=== PATIENT | male | born 1950 | race Caucasian/White ===

== ENCOUNTER 2018-12-13 06:28 | Inpatient (IN) ==
[2018-12-13] MEDS ORDERED: ASPIRIN 325 MG TABLET PO STA (06:59)
[2018-12-13] MEDS ORDERED: NITROGLYCERIN SL 0.4 MG TABLET SL PRN (06:59)
[2018-12-13] MEDS ORDERED: ENOXAPARIN 100 MG/ML SYRINGE SUBCUT STA (06:59)
[2018-12-13] MEDS ORDERED: NITROGLYCERIN 2% OINT 1 INCH/GM PACK TOP STA (06:59)
[2018-12-13 07:22] LABS: INR 0.9; PT Patient Result 10.2 SECS (9.6-12.2)
[2018-12-13] MEDS ORDERED: MAGNESIUM SULF RIDER 2 GM in PREMIX 1 EACH IV PRN (08:11)
[2018-12-13] MEDS ORDERED: MAGNESIUM SULF RIDER 4 GM in PREMIX 1 EACH IV PRN (08:11)
[2018-12-13] MEDS ORDERED: ONDANSETRON 4 MG/2 ML VIAL IV PRN (08:11)
[2018-12-13] MEDS ORDERED: MORPHINE 4 MG/1 ML VIAL IV PRN (08:11)
[2018-12-13] MEDS ORDERED: POTASSIUM CHLORIDE 20 MEQ TABLET PO PRN (08:11)
[2018-12-13] MEDS ORDERED: ZALEPLON 5 MG CAPSULE PO PRN (08:11)
[2018-12-13] MEDS ORDERED: PNEUMOCOCCAL VACCINE (13 VALENT) 0.5 ML SYRINGE IM ONE (09:36)
[2018-12-13] MEDS: METOPROLOL TARTRATE 25 MG TABLET PO SCH ×2 (09:59→21:14)
[2018-12-13] MEDS: FUROSEMIDE 20 MG TABLET PO SCH (09:59)
[2018-12-13] MEDS: ISOSORBIDE MONONITRATE 60 MG TABLET PO SCH (09:59)
[2018-12-13] MEDS: CLOPIDOGREL 75 MG TABLET PO SCH (09:59)
[2018-12-13] MEDS: amLODIPine 10 MG TABLET PO SCH (09:59)
[2018-12-13] MEDS: POTASSIUM CHLORIDE 10 MEQ TABLET PO SCH (10:01)
[2018-12-13] MEDS: INFLUENZA VIRUS VACCINE 0.5 ML SYRINGE IM ONE (11:32)
[2018-12-13] MEDS: SODIUM CHLORIDE 0.45% 1,000 ML IV SCH ×2 (13:10→17:55)
[2018-12-13] MEDS: NITROGLYCERIN 2% OINT 1 INCH/GM PACK TOP SCH ×2 (13:11→18:05)
[2018-12-13] MEDS ORDERED: ENOXAPARIN 60 MG/0.6 ML SYRINGE ONE (16:09)
[2018-12-13] MEDS: ENOXAPARIN 80 MG/0.8 ML SYRINGE SUBCUT SCH (18:04)
[2018-12-13] MEDS ORDERED: SIMVASTATIN 10 MG TABLET PO SCH (21:00)
[2018-12-13] MEDS ORDERED: LOSARTAN 50 MG TABLET PO SCH (21:00)
[2018-12-14] MEDS: NITROGLYCERIN 2% OINT 1 INCH/GM PACK TOP SCH ×2 (00:27→05:50)
[2018-12-14 04:36] LABS: Basophils # 0.1 10*3/uL (0.0-0.2); Basophils % 0.6 % (0.0-0.8); Eosinophils # 0.2 10*3/uL (0.0-0.87); Eosinophils % 1.2 % (0.00-10.9); Hematocrit 44.3 VOL% (42.0-52.0); Hemoglobin 14.9 GM/DL (14.0-18.0); Immature Granulocytes % 0.7 %; Immature Granulocytes Absolute 0.09 #; Lymphocytes % 15.5 % (21.2-54.2); Mean Corpuscular HGB Conc 33.6 GM/DL (32-36); Mean Corpuscular Volume 92.3 FL (87-102); Mean Platelet Volume 10.3 FL (9.6-12.0); Monocytes % 8.2 % (1.7-12.7); Neutrophils % 73.8 % (38.7-73.9); Platelet Count 198 T/CUMM (130-400); Red Cell Distribution Width 14.2 % (9.3-17.3); White Blood Count 13.1 T/CUMM (4-12)
[2018-12-14 05:13] LABS: Risk Ratio 4.16; VLDL CHOLESTEROL 33.8 MG/DL
[2018-12-14 05:17] LABS: Albumin 3.4 G/DL (3.4-5.0); Bilirubin,Total 0.6 MG/DL (0.2-1.0); Calcium 8.7 MG/DL (8.5-10.1); Osmolality,Calculated 284.1 MOS/KG (273-304); Total Protein 6.4 G/DL (6.4-8.3)
[2018-12-14] MEDS: ENOXAPARIN 80 MG/0.8 ML SYRINGE SUBCUT SCH ×2 (05:51→17:16)
[2018-12-14] MEDS: SODIUM CHLORIDE 0.45% 1,000 ML IV SCH (05:59)
[2018-12-14] MEDS ORDERED: DIAZEPAM 5 MG TABLET PO ONE (07:07)
[2018-12-14] MEDS ORDERED: diphenhydrAMINE CAP 25 MG CAPSULE PO ONE (07:07)
[2018-12-14] MEDS ORDERED: LIDOCAINE 1% 20 ML VIAL ONE (07:48)
[2018-12-14] MEDS ORDERED: VERAPAMIL 5 MG/2 ML VIAL ONE (07:48)
[2018-12-14] MEDS ORDERED: HEPARIN/NACL 0.9% 2 UNITS/ML 1,000 ML IV ONE (07:48)
[2018-12-14] MEDS ORDERED: NITROGLYCERIN DRIP 50 MG/250 ML BOTTLE IV ONE (07:48)
[2018-12-14] MEDS ORDERED: hydrALAZINE 20 MG/1 ML VIAL IV PRN (07:53)
[2018-12-14] MEDS ORDERED: MIDAZOLAM 2 MG/2 ML VIAL ONE (07:54)
[2018-12-14] MEDS ORDERED: fentaNYL 100 MCG/2 ML VIAL ONE (07:54)
[2018-12-14] MEDS ORDERED: diphenhydrAMINE 50 MG/1 ML VIAL ONE (08:00)
[2018-12-14] MEDS ORDERED: ENOXAPARIN 60 MG/0.6 ML SYRINGE ONE (08:11)
[2018-12-14] MEDS ORDERED: LOSARTAN 50 MG TABLET PO SCH (08:23)
[2018-12-14] MEDS: PANTOPRAZOLE 40 MG TABLET PO SCH (09:25)
[2018-12-14] MEDS: FUROSEMIDE 20 MG TABLET PO SCH (09:28)
[2018-12-14] MEDS: RANOLAZINE 500 MG TABLET PO SCH ×2 (09:28→20:32)
[2018-12-14] MEDS: METOPROLOL TARTRATE 25 MG TABLET PO SCH ×2 (09:28→20:33)
[2018-12-14] MEDS: ASPIRIN EC 81 MG TABLET PO SCH (09:28)
[2018-12-14] MEDS: amLODIPine 10 MG TABLET PO SCH (09:29)
[2018-12-14] MEDS: ISOSORBIDE MONONITRATE 60 MG TABLET PO SCH (09:29)
[2018-12-14] MEDS: CLOPIDOGREL 75 MG TABLET PO SCH (09:29)
[2018-12-14] MEDS: POTASSIUM CHLORIDE 10 MEQ TABLET PO SCH (09:29)
[2018-12-14] MEDS ORDERED: ROSUVASTATIN 20 MG TABLET PO SCH (21:00)
[2018-12-15 04:39] LABS: Basophils # 0.1 10*3/uL (0.0-0.2); Basophils % 0.7 % (0.0-0.8); Eosinophils # 0.2 10*3/uL (0.0-0.87); Eosinophils % 1.6 % (0.00-10.9); Hematocrit 47.3 VOL% (42.0-52.0); Hemoglobin 15.5 GM/DL (14.0-18.0); Immature Granulocytes % 0.7 %; Immature Granulocytes Absolute 0.08 #; Lymphocytes # 2.1 10*3/uL (1.4-4.0); Mean Corpuscular HGB Conc 32.8 GM/DL (32-36); Mean Corpuscular Volume 90.3 FL (87-102); Mean Platelet Volume 10.1 FL (9.6-12.0); Platelet Count 198 T/CUMM (130-400); Red Blood Count 5.24 MC/CUMM (3.8-5.5); Red Cell Distribution Width 14.1 % (9.3-17.3); White Blood Count 12.2 T/CUMM (4-12)
[2018-12-15 05:05] LABS: Calcium 8.7 MG/DL (8.5-10.1)
[2018-12-15] MEDS: amLODIPine 10 MG TABLET PO SCH (09:58)
[2018-12-15] MEDS: PANTOPRAZOLE 40 MG TABLET PO SCH (09:58)
[2018-12-15] MEDS: ISOSORBIDE MONONITRATE 60 MG TABLET PO SCH (09:58)
[2018-12-15] MEDS: hydrALAZINE 25 MG TABLET PO SCH ×2 (09:58→14:39)
[2018-12-15] MEDS: FUROSEMIDE 20 MG TABLET PO SCH (09:59)
[2018-12-15] MEDS: METOPROLOL TARTRATE 25 MG TABLET PO SCH (09:59)
[2018-12-15] MEDS: POTASSIUM CHLORIDE 10 MEQ TABLET PO SCH (09:59)
[2018-12-15] MEDS: ASPIRIN EC 81 MG TABLET PO SCH (10:00)
[2018-12-15] MEDS: RANOLAZINE 500 MG TABLET PO SCH (10:01)
[2018-12-15] MEDS: CLOPIDOGREL 75 MG TABLET PO SCH (10:01)
[2018-12-15 12:03] VITALS: BP 127/74
[2018-12-15] MEDS: INFLUENZA VIRUS VACCINE 0.5 ML SYRINGE IM ONE (15:12)
== END 2018-12-15 15:50 | disposition home or self-care (01) | DRG 281 ==
LOC: EDUNIT# → EDBD → N.ED 06:28 → N.EDINP 08:11 → N.TELES 09:17
PROVIDERS: ADMIT Internal Medicine Cardiovascular Disease; ATTEND Internal Medicine Cardiovascular Disease
PROC: CLCCHCL (ICD-10-PCS; 2018-12-14 08:45)